=== PATIENT | female | born 1985 | race Two or more races ===

== ENCOUNTER 2020-10-21 03:16 | Emergency (ER) | payer OTHER ==
[~2020-10-21] VITALS: Ht 165.1 cm; Wt 72.0 kg
[2020-10-21 06:00] VITALS: BP 120/71
== END 2020-10-21 06:17 | disposition home or self-care (01) ==
LOC: ER 03:16
DX: F31.9 Bipolar disorder, unspecified (principal); Z20.828 Contact with and (suspected) exposure to other viral communicable diseases; I49.9 Cardiac arrhythmia, unspecified
CPT/HCPCS: 87635; 93005; 99284; C9803; 99283